=== PATIENT | female | born 1930 | race African-American/Black ===

== ENCOUNTER 2017-06-26 08:46 | Outpatient (CLI) | payer MEDICARE | END 2017-06-26 08:47 | disposition critical access hospital (66) | LOC: EMS 08:46 | PROVIDERS: ATTEND Surgery | DX: R09.89 Other specified symptoms and signs involving the circulatory and respiratory systems (principal) | CPT/HCPCS: A0425; A0429 ==

== ENCOUNTER 2017-06-26 09:13 | Emergency (ER) | payer MEDICARE ==
[2017-06-26] MEDS ORDERED: ACETAMINOPHEN 325 MG TABLET PO STA (09:26)
--- NOTE | 2017-06-26 09:27 | ED Physician Documentation ---
PD HPI URI - Stated complaint Stated Complaint: COUGH/COLD - History obtained from History obtained from: Patient, Family (daughter) - History of Present Illness Timing duration: Weeks (1) Timing details: Still present Associated symptoms: Chills, Nasal congestion, Productive cough Contributing factors: Sick contact (Son-in-law.) - Additional information Additional information: The patient is an 87-year-old female with history of hypertension, who presents with cough and congestion of one weeks duration. Her cough has been intermittently productive of sputum. She has felt warm and chilled, but her thermometer has not measured a fever. She reports headache and generalized myalgias, as well as mild substernal chest discomfort with coughing. She denies abdominal pain, nausea or vomiting. She denies history of similar symptoms in the recent past. Her son-in-law has been sick with similar symptoms , but is now getting better. Review of Systems Constitutional: reports: Chills, Myalgias Eyes: denies: Discharge Ears: denies: Tinnitus/ringing Nose: reports: Congestion Throat: denies: Sore throat Cardiac: reports: Chest pain / pressure. denies: Palpitations Respiratory: reports: Dyspnea (Mild), Cough GI: denies: Abdominal Pain, Nausea, Vomiting, Diarrhea : denies: Dysuria Skin: denies: Rash Musculoskeletal: denies: Back pain, Extremity swelling Neurologic: reports: Headache. denies: Focal weakness, Numbness PD PAST MEDICAL HISTORY - Past Medical History Cardiovascular: Hypertension - Past Surgical History Past Surgical History: Yes General: Appendectomy /[employer] MET[employer]ING: Hysterectomy - Present Medications Home Medications: Ambulatory Orders Medication Instructions Recorded Confirmed Amlodipine Besylate 10 mg PO DAILY 12/24/15 12/24/15 Aspirin [Aspir-Low] 81 mg PO DAILY 12/24/15 12/24/15 Lisinopril 20 mg PO DAILY 12/24/15 12/24/15 Metoprolol Tartrate 50 mg PO DAILY 12/24/15 12/24/15 Multivitamin [Multivitamins] 12/24/15 - Allergies Allergies/Adverse Reactions: Allergies Allergy/AdvReac Type Severity Reaction Status Date / Time No Known Drug Allergies Allergy Verified 12/24/15 08:40 - Living Situation Living Situation: reports: With family Living Arrangement: reports: At home - Social History Does the pt smoke?: No Smoking Status: Never smoker Does the pt drink ETOH?: No Does the pt have substance abuse?: No - POLST Patient has POLST: No PD ED PE NORMAL - Vitals Vital signs reviewed: Yes (Tachypneic) - General General: Alert and oriented X 3, Well developed/nourished, Other (Appears uncomfortable, with cough. Speaks limited French, so daughter interprets.) - HEENT HEENT: Atraumatic, EOMI, Moist mucous membranes, Pharynx benign - Neck Neck: Supple, no meningeal sign, No adenopathy, No JVD - Cardiac Cardiac: RRR, No murmur - Respiratory Respiratory: Other (Faint crackles at the right base. Otherwise clear.) - Abdomen Abdomen: Soft, Non tender - Back Back: No CVA TTP - Derm Derm: No rash - Extremities Extremities: No edema, No calf tenderness / cord - Neuro Neuro: Alert and oriented X 3, No motor deficit, Normal speech Results - Vitals Vitals: Oxygen O2 Source Room air - EKG (time done) 09:32 Rate: Rate (enter#) (71) Rhythm: NSR [place]: Normal Intervals: Normal AL QRS: Normal Ischemia: Normal ST segments Computer interpretation: Agree with computer - Labs Labs: Laboratory Tests 06/26/17 06/26/17 06/26/17 09:46 09:46 09:46 WBC 7.7 RBC 4.62 Hgb 13.6 Hct 39.8 MCV 86.1 MCH 29.4 MCHC 34.1 RDW 12.3 Plt Count 297 MPV 7.5 L Neut # 5.5 Lymph # 1.4 L Alfalfa # 0.6 Eos # 0.1 Baso # 0.0 Absolute Nucleated RBC 0.00 Nucleated RBC % 0.1 Sodium 136 Potassium 3.5 Chloride 95 L Carbon Dioxide 26 Anion Gap 15.0 H BUN 8 Creatinine 0.6 Estimated GFR (MDRD) 115 Glucose 112 H Calcium 9.6 Total Bilirubin 0.6 AST 23 ALT 16 Alkaline Phosphatase 73 Troponin I < 0.04 B-Natriuretic Peptide Total Protein 8.4 H Albumin 3.9 Globulin 4.5 H Albumin/Globulin Ratio 0.9 L Lipase 30 Influenza A (Rapid) Influenza B (Rapid) Influenza Types A,B Ag 06/26/17 06/26/17 09:46 11:05 WBC RBC Hgb Hct MCV MCH MCHC RDW Plt Count MPV Neut # Lymph # [place] # Eos # Baso # Absolute Nucleated RBC Nucleated RBC % Sodium Potassium Chloride Carbon Dioxide Anion Gap BUN Creatinine Estimated GFR (MDRD) Glucose Calcium Total Bilirubin AST ALT Alkaline Phosphatase Troponin I B-Natriuretic Peptide 49 Total Protein Albumin Globulin Albumin/Globulin Ratio Lipase Influenza A (Rapid) Negative Influenza B (Rapid) Negative Influenza Types A,B Ag - - Rads (name of study) 2-view CXR Radiology: Prelim report reviewed, EMP read contemporaneously, See rad report ( No evidence of acute thoracic process.) PD MEDICAL DECISION MAKING - ED course Complexity details: reviewed old records, reviewed results, re-evaluated patient , considered differential, d/w patient, d/w family ED course: The patient's presentation is most consistent with viral upper respiratory infection. Pneumonia is unlikely with a negative chest x-ray and normal white count. Her presentation does not suggest congestive heart failure, and her BNP is normal. Her electrocardiogram reveals no evidence of cardiac ischemia. Influenza was considered, but nasal swab is negative for influenza A and B. Treatment in the emergency department included administration of acetaminophen 650 mg orally. I discussed with her and her daughter, who is a nurse at this hospital, the results of the workup, expected course of illness, symptomatic treatment and outpatient follow-up, as well as potentially worrisome signs or symptoms that should prompt reevaluation in the emergency department. Departure - Departure Disposition: 01 Home, Self Care Clinical Impression: Upper respiratory tract infection Qualifiers: URI type: unspecified viral URI Qualified Code(s): J06.9 - Acute upper respiratory infection, unspecified Condition: Stable Instructions: ED Upper Resp Infec No Abx Tx Follow-Up: Nino Monet MD [Primary Care Provider] - Comments: Drink plenty of fluids. Take Tylenol up to 650 mg 4 times daily if needed for fever or discomfort. It is okay to use Robitussin. Follow up with your primary physician within 1-2 weeks. Call to schedule an appointment. Return to the emergency department if you develop increasing difficulty breathing, or otherwise worsening symptoms. Discharge Date/Time: 06/26/17 12:44
[2017-06-26 09:59] LABS: BASOPHILS % (AUTO) 0.6 %; EOSINOPHILS # (AUTO) 0.1 10^3/uL (0.0-0.7); EOSINOPHILS % (AUTO) 1.5 %; HGB - HEMOGLOBIN 13.6 g/dL (12.0-16.0); LYMPHOCYTES # (AUTO) 1.4 10^3/uL (1.5-3.5); LYMPHOCYTES % (AUTO) 18.2 %; MEAN CORPUSCULAR HEMOGLOBIN 29.4 pg (27.0-31.0); MEAN CORPUSCULAR HGB CONC 34.1 g/dL (32.0-36.0); MEAN CORPUSCULAR VOLUME 86.1 fL (81.0-99.0); MEAN PLATELET VOLUME 7.5 fL (7.9-10.8); MONOCYTES # (AUTO) 0.6 10^3/uL (0.0-1.0); MONOCYTES % (AUTO) 8.4 %; NEUTROPHILS # (AUTO) 5.5 10^3/uL (1.5-6.6); NEUTROPHILS % (AUTO) 71.3 %; PLT - PLATELET COUNT 297 10^3/uL (130-450); RED BLOOD COUNT 4.62 10^6/uL (4.20-5.40); RED CELL DISTRIBUTION WIDTH 12.3 % (12.0-15.0); WHITE BLOOD COUNT 7.7 x10^3/uL (4.8-10.8)
--- NOTE | 2017-06-26 10:04 | XRAY Preliminary Report ---
Exam: XR CHEST 2 VIEW PA/LAT IMPRESSION: No evidence of acute thoracic process [facility] SITE ID: [id number]
--- NOTE | 2017-06-26 10:07 | XRAY Report ---
EXAM: CHEST RADIOGRAPHY EXAM DATE: 06/26/2017 09:55 AM. CLINICAL HISTORY: Cough and dyspnea. COMPARISON: None. TECHNIQUE: 2 views. FINDINGS: Lungs/Pleura: No focal opacities evident. No pleural effusion. No pneumothorax. Normal volumes. Mediastinum: Heart and mediastinal contours are unremarkable. Other: None. IMPRESSION: No evidence of acute thoracic process [facility] Referring Provider Line: [phone] SITE ID: [id number]
[2017-06-26 10:18] LABS: ALBUMIN 3.9 g/dL (3.2-5.5); ALBUMIN/GLOBULIN RATIO 0.9 (1.0-2.2); BILIRUBIN,TOTAL 0.6 mg/dL (0.2-1.0); CALCIUM 9.6 mg/dL (8.5-10.3); CREATININE 0.6 mg/dL (0.4-1.0); TOTAL PROTEIN 8.4 g/dL (6.7-8.2)
[2017-06-26 12:18] VITALS: BP 111/57
== END 2017-06-26 12:44 | disposition home or self-care (01) ==
LOC: EDUNIT# → ED 09:13
DX: J06.9 Acute upper respiratory infection, unspecified (principal); B97.89 Other viral agents as the cause of diseases classified elsewhere; I10 Essential (primary) hypertension; Z79.82 Long term (current) use of aspirin
CPT/HCPCS: 36415; 71020; 80053; 83690; 83880; 84484; 85025; 87275; 87276; 93005; 99283; A9270